=== PATIENT | female | born 1985 | race Caucasian/White ===

== ENCOUNTER 2019-02-14 10:50 | Outpatient (REF) | payer OTHER, SELFPAY ==
[2019-02-14 13:55] LABS: *AMPHETAMINES SCREEN URINE Negative (Negative); *BARBITURATES SCREEN URINE Negative (Negative); *BENZODIAZEPINES SCREEN URINE Negative (Negative); Cannabinoids THC Negative (Negative); Cocaine Screen,Urine Negative (Negative); METHADONE URINE SCREEN Negative (Negative); OPIATES URINE SCREEN Negative (Negative)
[2019-02-14 13:56] LABS: Tricyclic Antidepressants Negative (Negative)
== END 2019-02-14 11:10 ==
LOC: LBN 10:50
PROVIDERS: PCP Nurse Practitioner Family; Visit Provider Nurse Practitioner
DX: Z02.83 Encounter for blood-alcohol and blood-drug test (principal)
CPT/HCPCS: 80307

== ENCOUNTER 2019-08-16 01:22 | Outpatient (CLI) | payer OTHER, SELFPAY ==
[2019-08-16 09:59] LABS: Abs Immature Grans 0.02 k/cumm (0.0-0.09); Absolute Basophil Count 0.01 k/cumm (0.0-0.2); Absolute Eosinophil Count 0.09 k/cumm (0.0-0.7); Absolute Lymphocyte Count 1.52 k/cumm (1.2-3.4); Absolute Monocyte Count 0.54 k/cumm (0.11-0.7); Absolute Neutrophil Count 6.62 k/cumm (1.2-6.7); Basophils % 0.1; HCT 37.7 % (36.0-46.0); Immature Grans % 0.2 %; Lymphocytes % 17.3; Mean Corp. HGB Concentration 34.5 g/dL (32.0-36.0); Mean Corpuscular Hemoglobin 29.5 pg (27.0-33.0); Mean Corpuscular Volume 85.5 fL (80-95); Mean Platelet Volume 9.9 fL (8.0-11.0); Monocytes % 6.1; Neutrophils % 75.3; Platelet Count 296 x1000/uL (130-400); RBC 4.41 m/cumm (4.00-5.20); RBC Distribution Width 12.5 % (11.7-14.6)
[2019-08-16 10:04] LABS: Glucose,1 Hr (Glucola) 106 mg/dL (80-140)
[2019-08-16 11:07] LABS: ALT 25 U/L (14-59); AST 16 U/L (15-37); Albumin 3.3 g/dL (3.4-5.0); Alkaline Phosphatase 49 U/L (46-116); Bilirubin, Direct 0.11 mg/dL (0.00-0.20); Bilirubin, Total 0.5 mg/dL (0.2-1.0); TSH (W/Ref FT4) 1.29 uIU/mL (0.36-3.74); Total Protein 6.6 g/dL (6.4-8.2)
[2019-08-16 12:15] LABS: Bilirubin Negative (Negative); Blood Negative (Negative); Clarity Clear (Clear); Glucose Negative (Negative); Ketones Negative (Negative); Leukocyte Esterase Negative (Negative); Nitrite Negative (Negative); Specific Gravity >= 1.030 (1.005-1.025); Urobilinogen 0.2 EU/dL (Up TO 0.2); pH 5.5 (5-8)
[2019-08-16 12:18] LABS: *AMPHETAMINES SCREEN URINE Negative (Negative); *BARBITURATES SCREEN URINE Negative (Negative); *BENZODIAZEPINES SCREEN URINE Negative (Negative); Cannabinoids THC Negative (Negative); Cocaine Screen,Urine Negative (Negative); METHADONE URINE SCREEN Negative (Negative); OPIATES URINE SCREEN Negative (Negative)
[2019-08-16 12:20] LABS: Tricyclic Antidepressants Negative (Negative)
[2019-08-17 09:10] LABS: Hepatitis B Surface Ag Negative (Negative)
[2019-08-17 09:34] LABS: HIV-1/2 Ag & Ab Screen Negative (Negative)
[2019-08-17 10:25] LABS: Hepatitis C Ab w Rflx HCV PCR Negative (Negative)
[2019-08-17 12:46] LABS: Varicella IgG Antibody Positive (See Note)
[2019-08-17 13:03] LABS: Rubella IgG Ab (UVM) Positive (See Note)
[2019-08-17 14:46] LABS: Chlamydia Result Negative (Negative); GC Result Negative (Negative)
[2019-08-18 11:38] LABS: Syphilis Total Ab w/Reflex Nonreactive (Nonreactive)
[2019-08-24 08:17] LABS: Buprenorphine Negative
== END 2019-08-16 01:42 ==
LOC: LBO 01:22 → LBN 10:39
PROVIDERS: Advanced Practice Midwife; PCP Nurse Practitioner Family; Visit Provider Advanced Practice Midwife
DX: Z34.91 Encounter for supervision of normal pregnancy, unspecified, first trimester (principal); Z11.59 Encounter for screening for other viral diseases; Z11.4 Encounter for screening for human immunodeficiency virus [HIV]; Z01.84 Encounter for antibody response examination; Z11.3 Encounter for screening for infections with a predominantly sexual mode of transmission; R30.0 Dysuria
CPT/HCPCS: 36415; 80076; 80307; 82950; 86787; 86803; 86850; 86900; 86901; 87340; 87389; 87491; 87591; 81003; 84443; 85025; 86762; 86780; 87086

== ENCOUNTER 2019-08-16 10:48 | Outpatient (REF) | payer OTHER, SELFPAY ==
--- NOTE | 2019-08-16 09:00 | PAPFT_PTH ---
PATIENT: GreyJune LOC: [facility] U#:[id number] AGE/SX: 33/F ROOM: RE08/16/[address]: Naz Madrid RN : 1985 BED: DIS: 08/16/2019 SPEC #: [id number] RECD: 08/16/19 15:21 STATUS: TIFF REDillan #: [id number] [place]: 08/16/19 09:[address]: Naz Madrid DEPT: [facility] Cytology RECD BY: Lauren Romero ENTERED: 08/16/19 15:21 SP TYPE: PAPFT OTHR DR: Chinyere Ferris, MAT Tissues: 1 - CX/ENDOCX FOR PAP SMEARS Procedures: PAP THIN PREP/UVM Screening HPV DNA PROBE Comments: [id number]
== END 2019-08-16 11:08 ==
LOC: LBN 10:48
PROVIDERS: PCP Nurse Practitioner Family; Visit Provider Advanced Practice Midwife
DX: Z12.4 Encounter for screening for malignant neoplasm of cervix (principal); Z11.51 Encounter for screening for human papillomavirus (HPV); R87.612 Low grade squamous intraepithelial lesion on cytologic smear of cervix (LGSIL)
CPT/HCPCS: 88142; 87624

== ENCOUNTER 2019-10-11 03:11 | Outpatient (CLI) | payer OTHER, MEDICAID, SELFPAY ==
--- NOTE | 2019-10-11 06:45 | DI.US_ITS ---
EXAM: US OB 2-3 TRIMESTER CLINICAL HISTORY: ,Z34.90 TECHNIQUE: Ultrasound performed using standard protocol. COMPARISON: No exams were available for comparison FINDINGS: Ob ultrasound was performed utilizing 2nd trimester protocol. biometry is consistent with gest ational age of 21 weeks and an EDC of 02/21/2020. Placenta is posterior with no evidence of placenta previa. There is a visually normal quantity of am niotic fluid. anomaly screen is within normal limits as per the attached checklist. heart rate is 163 BPM. IMPRESSION: DATA REPOSITORY:
== END 2019-10-11 03:31 ==
PROVIDERS: PCP Nurse Practitioner Family; Visit Provider Advanced Practice Midwife
DX: Z34.92 Encounter for supervision of normal pregnancy, unspecified, second trimester (principal)
CPT/HCPCS: 76805

== ENCOUNTER 2019-12-06 04:20 | Outpatient (CLI) | payer OTHER, MEDICAID, SELFPAY ==
[2019-12-06 11:02] LABS: HCT 35.3 % (36.0-46.0); HGB 11.9 g/dL (11.2-15.7); MCH 29.8 pg (27.0-33.0); MCHC 33.7 % (32.0-36.0); MCV 88.5 fL (80-95); MPV 10.9 fL (8.0-11.0); Platelet Count 235 10^3/uL (130-400); RBC 3.99 10^6/uL (3.93-5.22); RDW 12.9 % (11.7-14.6); RDW-SD 41.8 fL; WBC 13.62 10^3/uL (4.4-10.8)
[2019-12-06 11:06] LABS: Glucose,1 Hr (Glucola) 114 mg/dL (80-140)
[2019-12-06 11:29] LABS: PROTEIN 42.8 mg/dL
[2019-12-06 11:33] LABS: Prot/Crea Ur Ratio 0.16
[2019-12-06 12:17] LABS: ALT 21 U/L (14-59); AST 18 U/L (15-37); Albumin 2.5 g/dL (3.4-5.0); Alkaline Phosphatase 94 U/L (46-116); Anion Gap 11.3 mmol/L (3-11); BUN 10 mg/dL (7-18); Bilirubin, Total 0.3 mg/dL (0.2-1.0); CO2 21.7 mmol/L (21.0-32.0); CREATININE 0.69 mg/dL (0.55-1.02); Calcium 9.1 mg/dL (8.5-10.1); Chloride 103 mmol/L (98-107); Glucose 103 mg/dL (74-106); Potassium 4.1 mmol/L (3.5-5.1); Sodium 136 mmol/L (136-145); Total Protein 5.8 g/dL (6.4-8.2); Uric Acid 5.1 mg/dL (2.6-6.0)
== END 2019-12-06 04:40 ==
PROVIDERS: PCP Nurse Practitioner Family; Visit Provider Advanced Practice Midwife
DX: O13.3 Gestational [pregnancy-induced] hypertension without significant proteinuria, third trimester (principal); Z34.03 Encounter for supervision of normal first pregnancy, third trimester; Z3A.28 28 weeks gestation of pregnancy
CPT/HCPCS: 36415; 80053; 82950; 85027; 82565; 84156; 84550

== ENCOUNTER 2019-12-06 10:38 | Outpatient (CLI) | payer OTHER, MEDICAID, SELFPAY ==
[2019-12-06 11:05] VITALS: BP 147/90; PULSE 65; TEMP 36.9
[2019-12-06 11:09] VITALS: BP 147/90; PULSE 65
[2019-12-06 11:25] VITALS: BP 145/84; PULSE 64
[2019-12-06 11:40] VITALS: BP 143/82; PULSE 63
--- NOTE | 2019-12-06 15:00 | W.OBNST ---
Date of service: 12/06/19 Time of Service: 12:00 NST Evaluation Reason for NST Reasons for Nonstress Test: GESTATIONAL HYPERTENSION Gestational Age Gestational Age in Weeks and Days: 28 Weeks and 1Days Test and Monitor Explained Test/Monitor Explained: Test Explained, Monitor Explained and Patient Verbalized Understanding Vital Signs Blood Pressure: 147/90 Pulse: 65 Temperature: 98.4 F NST Information Date on Monitor: 12/06/19 Time on Monitor: 11:05 Date off Monitor: 12/06/19 Time off Monitor: 11:50 Total Time on Monitor: 45 NST Interventions: None Contraction Frequency: none NST Evaluation Patient States Movement: Present FHR Baseline: 145 Variability: Moderate 6-25 bpm Accelerations: 15x15 Decelerations: None NST Results: Reactive NST Results Other: Reviewed lab results with Meg. Weekly visits recommended. Note NST Note Note: Consult with Drs. Nina and Adriano who agree with plan for weekly visits, signs of preeclampsia reviewed. NST Reviewed and Verified by: Manuela George
[2019-12-06 15:03] VITALS: BP 147/90; PULSE 65; TEMP 36.9
== END 2019-12-06 12:00 | disposition home or self-care (01) ==
LOC: BCD 10:40 → OBS 10:47
PROVIDERS: PCP Nurse Practitioner Family; Visit Provider Advanced Practice Midwife
DX: O13.3 Gestational [pregnancy-induced] hypertension without significant proteinuria, third trimester (principal); Z3A.28 28 weeks gestation of pregnancy
CPT/HCPCS: 59025

== ENCOUNTER 2019-12-15 11:41 | Observation (INO) | payer OTHER, MEDICAID, SELFPAY ==
[2019-12-15] VITALS (104 sets, daily range): BP systolic 122–184; BP diastolic 75–120; PULSE 62–108; RESP 16–22; TEMP 36.3–36.9; O2SAT 87–100
--- NOTE | 2019-12-15 | DI.US_ITS ---
EXAM: US OB BIOPHYSICAL PROFILE CLINICAL HISTORY: probable gest htn, s>d thus please do efw/dawna TECHNIQUE: Ultrasound performed using standard protocol. COMPARISON: US US OB 2-3 TRIMESTER from 10/11/2019 US US OB DAWNA WEIGHT from 12/15/2019 FINDINGS: Ob ultrasound was performed utilizing 3rd trimester protocol with biophysical profile score. biometry is consistent with gestational age 30 weeks 1 day and EDC of February 21. The estimated weight is 1470 grams which is at the 53rd percentile for predicted gestational ag e. Placenta is posterior with no evidence of placenta previa. No There is a normal quantity of amniotic fluid and the DAWNA is 17. heart rate is 140 BPM. Fetus is in cephalic presentation. Biophysical profile score is 8/8. IMPRESSION: Thirty week 1 day gestational age, biophysical profile score is 8/8. DATA REPOSITORY:
[2019-12-15 12:09] LABS: HCT 35.1 % (36.0-46.0); HGB 12.1 g/dL (11.2-15.7); MCH 29.9 pg (27.0-33.0); MCHC 34.5 % (32.0-36.0); MCV 86.7 fL (80-95); MPV 11.5 fL (8.0-11.0); Platelet Count 246 10^3/uL (130-400); RBC 4.05 10^6/uL (3.93-5.22); RDW 12.9 % (11.7-14.6); RDW-SD 40.3 fL; WBC 14.12 10^3/uL (4.4-10.8)
[2019-12-15] MEDS: Labetalol 100 MG/20 ML VIAL 20 MG IVP (12:18)
[2019-12-15] MEDS: Betamet Acet/Betamet Na Ph Inj. 30 MG/5 ML 12 MG IM (12:20)
--- NOTE | 2019-12-15 12:26 | HPE_ITS ---
Date of service: 12/15/19 Time of Service: 12:26 Assessment and Plan Assessment and plan (1) Gestational hypertension affecting first : Status: Acute Assessment and plan: Admit to evaluate for preeclampsia. Will treat with IV labetalol for management of severe range blood pressures. Will administer betamethasone for lung maturity in the event that delivery at this gestational age may be required. Will continue to follow blood pressures and treat accordingly. If blood pressures remain elevated, likely this would represent severe preeclampsia and would proceed with magnesium sulfate administration for seizure prolphyaxis. If this is the case I would recommend transfer to a tertiary facility for further management. Will obtain a ultrasound for growth, DAWNA and BPP. Covid testing on admission per standard. I discussed my concerns and the management plan with the patient. All questions were answered. History of Present Illness History of Present Illness Chief Complaint: Possible preeclampsia Narrative: 34 year old @ 29.3 weeks gestation presented today for routine visit and blood pressure check. She is a midwifery patient and was being surveilled for mild blood pressure elvevations. on 12/05 she was noted to have BP elevation to 142/94 and preeclampsia labs were normal. Today her blood pressure was 170/120 with repeat of 180/120. She is currently asymptomatic. She denies headache or visual changes. No abdominal pain. She reports good movement. She did have a normal anatomy survey at approximately 19 weeks gestation. Review of Systems All systems reviewed & are unremarkable except as noted in HPI and below PFSH Medical History (Updated 12/06/19 @ 10:02 by Megan Brantley) Encounter for PPD test Increased body mass index (BMI) Migraine headache with aura Family History Mother Ovarian cancer Father Colon cancer Sister Thyroid disease Social History Smoking/Tobacco Use Status: Never Alcohol Intake: never Drug use: Never Substance use type: does not use Do you feel safe at home: Yes Do you feel safe in your relationship?: Yes History History 2 Para 0 Hx # Term Pregnancies 0 Multiple births 0 Hx # Pregnancies 0 Ectopic pregnancies 0 AB induced 0 Hx Number of Living Children 0 AB spontaneous 1 Meds Home Medications and Allergies Home Medications Medication Instructions Recorded Confirmed Type prenat.vits,ruperto,rem-lavy-pqzgv 1 tab PO DAILY 07/18/19 12/15/19 History aspirin 81 mg tablet,delayed 81 mg PO DAILY #60 tab 12/06/19 12/15/19 Rx release Allergies Allergy/AdvReac Type Severity Reaction Status Date / Time amoxicillin Allergy Severe HIVES Verified 12/15/19 11:08 Exam Const General: cooperative and healthy appearing [facility] Head: normal to inspection Resp Auscultation: clear to auscultation bilaterally Cardio Rate: regular rate Rhythm: regular rhythm Results Labs Result diagrams: 12/15/19 12:00 12/15/19 12:00 Labs: Laboratory Results - last 24 hr 12/15/19 12:00 WBC 14.12 H RBC 4.05 Hgb 12.1 Hct 35.1 L MCV 86.7 MCH 29.9 MCHC 34.5 RDW 12.9 Plt Count 246 MPV 11.5 H Last Vital Signs Pulse 67 12/15/19 12:25 Resp 20 12/15/19 11:53 BP 178/84 H 12/15/19 12:25 Pulse Ox 95 12/15/19 12:22 COVID-19 Screening Have you,or household,traveled outside [place] in last 14 days?: No Had IN PERSON contact w/suspected or confirmed C-19 person: No
[2019-12-15 12:27] LABS: PROTEIN 84.8 mg/dL
[2019-12-15] MEDS: Lactated Ringers 500 ML 30 ML IV (12:27)
[2019-12-15 12:37] LABS: ALT 18 U/L (14-59); AST 17 U/L (15-37); Albumin 2.4 g/dL (3.4-5.0); Alkaline Phosphatase 100 U/L (46-116); Anion Gap 9.4 mmol/L (3-11); BUN 9 mg/dL (7-18); Bilirubin, Total 0.3 mg/dL (0.2-1.0); CO2 22.6 mmol/L (21.0-32.0); CREATININE 0.65 mg/dL (0.55-1.02); Calcium 9.1 mg/dL (8.5-10.1); Chloride 104 mmol/L (98-107); Glucose 81 mg/dL (74-106); Sodium 136 mmol/L (136-145); Total Protein 6.1 g/dL (6.4-8.2); Uric Acid 4.9 mg/dL (2.6-6.0)
[2019-12-15] MEDS: Labetalol 100 MG/20 ML VIAL 40 MG IVP (12:47)
[2019-12-15 12:48] LABS: Prot/Crea Ur Ratio 0.33
[2019-12-15] MEDS: MAGNESIUM SULFATE 20 GM/500 ML BAG IV (13:24)
[2019-12-15] MEDS: hydrALAZINE 20 MG/ML VIAL 10 MG IVP (18:18)
[2019-12-15] MEDS: Labetalol 100 MG/20 ML VIAL 80 MG IVP (18:58)
--- NOTE | 2019-12-15 19:12 | DSE_ITS ---
Date of service: 12/15/19 Time of Service: 19:12 DS: Diagnosis Discharge Diagnosis (1) Gestational hypertension affecting first : Status: Acute Discharge Plan Disposition Patient Disposition: [facility] Condition: Stable Discharge Details Reason For Visit: R/O PRECLAMPSIA Admit Date/Time: 12/15/19 11:41 Admit Provider: Naz Madrid Attending Provider: Nba Montesinos [facility] Hospital Course: 34 year old at 29.3 weeks gestation admitted for markedly elevated blood pressu res noted in the clinic. Her initial BP in the clinic was 170/120 and repeat was 180/120. On admission she was provided the following medications: Time Labetalol 20 mg - 1218 Labetalol 40 mg - 1247 Hydralazine 10 mg - 1818 Labetalol 80 mg - 1855 Betamethasone - 1220 She was started on a magnesium sulfate infusion with a 4gm bolus then 2 gm/hr. Laboratory studies were normal with the exception of an elevated protein creatinine ratio to 0.33. The patient was largely asymptomatic on admission but did develo a headache in the evening and exam was normal. Transfer was arranged to [facility] under the service of Dr. Leslie Knapp. Home Meds and New Rx's Prescriptions: Continued aspirin 81 mg tablet,delayed release (DR/EC) 81 mg PO DAILY Qty: 60 RF: 4 prenat.vits,ruperto,vqp-ecuq-tpgtm Tablet 1 tab PO DAILY RF: 0 Discharge Instructions Activity:: Bedrest Diet:: NPO Discharge Orders Discharge Orders: Discharge Order (Routine); Ordered 12/15/19 Ordered By: Nba Montesinos DS: Summary Status at Discharge Functional status at discharge: bed bound Overall status at discharge: patient is not back to baseline Mental Status: mental status grossly normal Speech and Movement: speech and movement normal Mood: congruent mood Affect: normal affect Exam Psych Mental Status: mental status grossly normal Speech and Movement: speech and movement normal Mood: congruent mood Affect: normal affect DS: Data Vitals/I&O Vitals and I&O: Vital Signs Temperature 97.3 F L 12/15/19 15:11 Pulse 90 12/15/19 18:05 Pulse Rhythm Regular 12/15/19 12:02 Respiratory Rate 18 12/15/19 16:09 Blood Pressure 159/95 H 12/15/19 18:58 Blood Pressure Mean 117 12/15/19 18:50 Pulse Oximetry 97 12/15/19 17:37 Oxygen Delivery Method Room Air 12/15/19 11:53 Oxygen Flow Rate 0 12/15/19 11:53 Intake & Output 12/14/19 12/15/19 12/15/19 23:59 11:59 23:59 Intake Total 400 / 400 Output Total 750 / 750 Balance -350 / -350 Weight 208 lb Intake: Oral 400 / 400 Output: Urine 750 / 750 Other: Urine Color Light [place] Light [place] Data Completed and Pending Labs on day of discharge: Labs from last 24 hours 12/15/19 12/15/19 12/15/19 15:00 12:00 12:00 WBC 14.12 H RBC 4.05 Hgb 12.1 Hct 35.1 L MCV 86.7 MCH 29.9 MCHC 34.5 RDW 12.9 Plt Count 246 MPV 11.5 H Sodium 136 Potassium 4.0 Chloride 104 Carbon Dioxide 22.6 Anion Gap 9.4 BUN 9 Creatinine 0.65 Estimated GFR/1.73 m2 >= 60.00 Glucose 81 Uric Acid 4.9 Calcium 9.1 Total Bilirubin 0.3 AST 17 ALT 18 Alkaline Phosphatase 100 Total Protein 6.1 L Albumin 2.4 L Ur Random Creatinine U Random Total Protein U Mobile Prot/Creat Ratio COVID-19 PCR Pending Nasopharyn COVID-19 PCR Pending Ref Test Perform Site Pending 12/15/19 11:56 WBC RBC Hgb Hct MCV MCH MCHC RDW Plt Count MPV Sodium Potassium Chloride Carbon Dioxide Anion Gap BUN Creatinine Estimated GFR/1.73 m2 Glucose Uric Acid Calcium Total Bilirubin AST ALT Alkaline Phosphatase Total Protein Albumin Ur Random Creatinine 252.50 U Random Total Protein 84.8 U Mobile Prot/Creat Ratio 0.33 COVID-19 PCR Nasopharyn COVID-19 PCR Ref Test Perform Site [facility] Medical History (Updated 12/06/19 @ 10:02 by Megan Brantley) Encounter for PPD test Increased body mass index (BMI) Migraine headache with aura Family History Mother Ovarian cancer Father Colon cancer Sister Thyroid disease Social History (Reviewed 08/16/19 @ 08:46 by ZELALEM Azar Smoking/Tobacco Use Status: Never Alcohol Intake: never Drug use: Never Substance use type: does not use Do you feel safe at home: Yes Do you feel safe in your relationship?: Yes History History 2 Para 0 Hx # Term Pregnancies 0 Multiple births 0 Hx # Pregnancies 0 Ectopic pregnancies 0 AB induced 0 Hx Number of Living Children 0 AB spontaneous 1
[2019-12-16 02:11] LABS: COVID-19 RT-PCR UVMMC Result Negative (Negative)
== END 2019-12-15 19:58 | disposition short-term general hospital (02) | DRG 833 ==
PROVIDERS: Advanced Practice Midwife; Admitting Provider Obstetrics & Gynecology; PCP Nurse Practitioner Family; Visit Provider Obstetrics & Gynecology
DX: O13.3 Gestational [pregnancy-induced] hypertension without significant proteinuria, third trimester (principal); Z3A.29 29 weeks gestation of pregnancy; O99.353 Diseases of the nervous system complicating pregnancy, third trimester; G43.109 Migraine with aura, not intractable, without status migrainosus
CPT/HCPCS: 36415; 76815; 76816; 80053; 85027; 96360; 96361; 96365; 96366; 96372; 99223; 99239; U0003; 76819; 82565; 84156; 84550; G0378; J0360; J0702; J3475

== ENCOUNTER 2020-11-13 15:41 | Outpatient (REF) | payer MEDICAID, SELFPAY ==
--- NOTE | 2020-11-13 14:30 | PAPFT_PTH ---
PATIENT: GreyMeg Darell LOC: [facility] U#:[id number] AGE/SX: 35/F ROOM: RE11/13/[address]: Irina Gimenez MD : 1985 BED: DIS: 11/13/2020 SPEC #: [id number] RECD: 11/13/20 18:35 STATUS: ITFF REDillan #: [id number] [place]: 11/13/20 14:[address]: Irina Gimenez DEPT: [facility] Cytology RECD BY: Lauren Romero ENTERED: 11/13/20 18:35 SP TYPE: PAPFT ESTELITA DR: Chinyere Ferris, MAT Tissues: 1 - CX/ENDOCX FOR PAP SMEARS Procedures: PAP THIN PREP/UVM Screening HPV DNA PROBE Comments: [id number]
== END 2020-11-13 15:42 | disposition home or self-care (01) ==
LOC: LBN 15:41
PROVIDERS: PCP Nurse Practitioner Family; Visit Provider Obstetrics & Gynecology
DX: Z12.4 Encounter for screening for malignant neoplasm of cervix (principal); Z01.419 Encounter for gynecological examination (general) (routine) without abnormal findings; Z11.51 Encounter for screening for human papillomavirus (HPV); R87.612 Low grade squamous intraepithelial lesion on cytologic smear of cervix (LGSIL); B97.7 Papillomavirus as the cause of diseases classified elsewhere
CPT/HCPCS: 88142; 87624

== ENCOUNTER 2021-08-07 02:39 | Outpatient (CLI) | payer MEDICAID, SELFPAY ==
[2021-08-07 09:50] LABS: TSH (W/Ref FT4) 2.01 uIU/mL (0.36-3.74)
== END 2021-08-07 02:40 | disposition home or self-care (01) ==
LOC: LBO 02:42 → LBN 09:24
PROVIDERS: PCP Nurse Practitioner Adult Health; Referring Provider Nurse Practitioner Adult Health; Visit Provider Nurse Practitioner Adult Health
DX: E66.8 Other obesity (principal); F32.89 Other specified depressive episodes
CPT/HCPCS: 84443

== ENCOUNTER 2021-09-18 10:41 | Outpatient (REF) | payer MEDICAID, SELFPAY ==
[2021-09-18 11:54] LABS: Abs Immature Grans 0.02 10^3/uL (0.0-0.06); Absolute Basophil Count 0.02 10^3/uL (0.0-0.2); Absolute Eosinophil Count 0.12 10^3/uL (0.0-0.7); Absolute Monocyte Count 0.48 10^3/uL (0.1-0.8); Absolute Neutrophil Count 3.72 10^3/uL (1.2-6.7); Basophils % 0.3; Eosinophils % 1.8; HCT 44.7 % (36.0-46.0); HGB 14.8 g/dL (11.2-15.7); Immature Grans % 0.3; Lymphocytes % 33.5; MCHC 33.1 % (32.0-36.0); MCV 88 fL (80-95); MPV 10.2 fL (8.0-11.0); Monocytes % 7.3; Neutrophils % 56.8; Platelet Count 352 10^3/uL (130-400); RDW 12.9 % (11.7-14.6); RDW-SD 41.1 fL; WBC 6.56 10^3/uL (4.4-10.8)
[2021-09-18 12:15] LABS: Hemoglobin A1C 5.4 % (<5.7)
[2021-09-18 12:27] LABS: Vitamin D 25 Total 25.5 ng/mL (30-100)
[2021-09-18 12:29] LABS: ALT 34 U/L (14-59); AST 19 U/L (15-37); Albumin 4.3 g/dL (3.4-5.0); Alkaline Phosphatase 88 U/L (46-116); Anion Gap 11.5 mmol/L (3-11); BUN 10 mg/dL (7-18); Bilirubin, Total 0.7 mg/dL (0.2-1.0); CO2 24.5 mmol/L (21.0-32.0); Calcium 9.2 mg/dL (8.5-10.1); Calculated LDL 101 mg/dL (<100); Chloride 105 mmol/L (98-107); Cholesterol 183 mg/dL (<200); Ferritin 80 ng/mL (8-252); Glucose 97 mg/dL (74-106); HDL Cholesterol 68 mg/dL (40-60); Potassium 4.1 mmol/L (3.5-5.1); Sodium 141 mmol/L (136-145); TSH 0.95 uIU/mL (0.36-3.74); Total Protein 7.6 g/dL (6.4-8.2); Triglyceride 73 mg/dL (<150); Vitamin B12 299 pg/mL (193-986)
[2021-09-22 09:45] LABS: Insulin 10.4 uIU/mL (<29.0)
== END 2021-09-18 10:42 | disposition home or self-care (01) ==
LOC: LBN 10:41
PROVIDERS: PCP Nurse Practitioner Adult Health; Visit Provider Surgery
DX: E66.9 Obesity, unspecified (principal); Z68.33 Body mass index [BMI] 33.0-33.9, adult
CPT/HCPCS: 80053; 80061; 82306; 82607; 82728; 83036; 83525; 84443; 85025

== ENCOUNTER 2023-09-29 17:38 | Outpatient (REF) | payer BC, SELFPAY ==
--- NOTE | 2023-09-29 12:30 | PAPFT_PTH ---
PATIENT: GreyMeg Darell LOC: [facility] U#:[id number] AGE/SX: 37/F ROOM: RE09/29/[address]: Martha Buckner APRN : 1985 BED: DIS: 09/29/2023 SPEC #: [id number] RECD: 09/29/23 17:47 STATUS: TIFF REDillan #: [id number] [place]: 09/29/23 12:[address]: Martha Buckner DEPT: [facility] Cytology RECD BY: Lauren Romero Tissues: 1 - CX/ENDOCX FOR PAP SMEARS Procedures: PAP THIN PREP/UVM Screening HPV DNA PROBE Comments: [id number] (HPV 16 & 18/45)
== END 2023-09-29 17:39 | disposition home or self-care (01) ==
LOC: LBN 17:38
PROVIDERS: PCP Nurse Practitioner Adult Health; Visit Provider Nurse Practitioner Adult Health
DX: Z12.4 Encounter for screening for malignant neoplasm of cervix (principal); Z11.51 Encounter for screening for human papillomavirus (HPV); Z00.00 Encounter for general adult medical examination without abnormal findings; R87.612 Low grade squamous intraepithelial lesion on cytologic smear of cervix (LGSIL); F43.21 Adjustment disorder with depressed mood; Z80.0 Family history of malignant neoplasm of digestive organs; Z80.41 Family history of malignant neoplasm of ovary; N93.9 Abnormal uterine and vaginal bleeding, unspecified
CPT/HCPCS: 88142; 87624

== ENCOUNTER 2023-12-22 14:48 | Outpatient (CLI) | payer BC, SELFPAY ==
--- NOTE | 2023-12-22 14:52 | DI.RAD_ITS ---
Exam(s) XR ANKLE RT COMPLETE EXAM: XR ANKLE RT COMPLETE CLINICAL HISTORY: injured 4 weeks ago, lateral malleolus pain, M25.571-rt ankle pain. TECHNIQUE: 2D digital imaging was performed of the right ankle. Three images were obtained. AP, la teral and oblique views were obtained. COMPARISON: No exams were available for comparison FINDINGS: BONES: No acute fracture is present. No bony destructive lesion is seen. JOINTS: The ankle mortise is normally aligned. SOFT TISSUE: Normal. IMPRESSION: Unremarkable radiographs of the right ankle. DATA REPOSITORY: RADIATION DOSE DELIVERED:
== END 2023-12-22 15:08 ==
LOC: DI 14:49
PROVIDERS: PCP Nurse Practitioner Adult Health; Visit Provider Nurse Practitioner
DX: M25.571 Pain in right ankle and joints of right foot (principal)
CPT/HCPCS: 73610